=== PATIENT | male | born 1950 | race Two or more races ===

== ENCOUNTER 2021-09-16 15:14 | Emergency (ER) | payer OTHER ==
[~2021-09-16] VITALS: Ht 160 cm; Wt 83.9 kg
[2021-09-16] MEDS ORDERED: PANTOPRAZOLE 40 MG/10 ML VIAL INJ IV ONE (15:30)
[2021-09-16 16:52] LABS: Basophils # (auto) 0.1 10 ^3/uL (0-0.2); Basophils % (auto) 0.7 % (0.0-2.0); Eosinophils # (auto) 0 10 ^3/uL (0-0.8); Hematocrit 42.6 % (41.0-53.0); Lymphocytes # (auto) 0.2 10 ^3/uL (0.4-5.4); Lymphocytes % (auto) 1.1 % (10.0-50.0); Mean Corpuscular Hemoglobin 28.5 pg (28.0-32.0); Mean Corpuscular Hgb Conc. 35.1 g/dL (32.0-36.0); Mean Corpuscular Volume 81.3 fL (80.0-100.0); Monocytes # (auto) 0.9 10 ^3/uL (0-1.3); Monocytes % (auto) 4.2 % (0.0-12.0); Red Blood Cells 5.24 10^6/uL (4.5-5.90); Red Cell Distribution Width 13.1 % (11.8-14.3); White Blood Cell 21.3 10^3/uL (4.4-10.8)
[2021-09-16 17:03] LABS: Albumin 3.6 g/dL (3.4-5.0); BUN/Creatinine Ratio 17.3; Calcium 9.3 mg/dL (8.5-10.1)
[2021-09-16 17:05] LABS: Bilirubin, Total 1.4 mg/dL (0.2-1.0); Total Protein 7.8 g/dL (6.4-8.2)
[2021-09-16 17:08] LABS: Potassium 2.9 mmol/L (3.5-5.1)
[2021-09-16 17:11] LABS: INR 1.05 (0.9-1.15); Partial Thromboplastin Time 25.1 sec (23.6-33.0)
[2021-09-16] MEDS ORDERED: POTASSIUM CHL 20MEQ/100ML 100 ML IV ONE (17:45)
[2021-09-16] MEDS ORDERED: metroNIDAZOLE 500MG/100ML 100 ML IV ONE (17:45)
[2021-09-16] MEDS ORDERED: ONDANSETRON HCL 4 MG/2 ML VIAL IV ONE (17:45)
[2021-09-16] MEDS ORDERED: SODIUM CHLORIDE 0.9% 1,000 ML IV ONE ×2 (17:45→18:00)
[2021-09-16] MEDS ORDERED: levoFLOXacin 250 MG TAB PO ONE (17:45)
[2021-09-16 20:45] LABS: Lactic Acid w/Reflex 2.7 mmol/L (0.4-2.0)
[2021-09-16 20:50] LABS: Urine Bacteria NONE SEEN /hpf (None Seen); Urine Blood 2+ /uL (Negative); Urine Mucus FEW (None Seen); Urine Specific Gravity 1.027 (1.001-1.035); Urine WBC <1 /hpf (0 - 3)
[2021-09-16] MEDS ORDERED: ACETAMINOPHEN 325 MG TAB PO ONE (23:00)
[2021-09-16 23:41] VITALS: BP 138/83
== END 2021-09-17 00:23 | disposition short-term general hospital (02) ==
LOC: ER 15:14
DX: S09.8XXA Other specified injuries of head, initial encounter (principal); R55 Syncope and collapse; K92.2 Gastrointestinal hemorrhage, unspecified; I71.2 Thoracic aortic aneurysm, without rupture; D72.829 Elevated white blood cell count, unspecified; E87.6 Hypokalemia; Z20.822 Contact with and (suspected) exposure to COVID-19; X58.XXXA Exposure to other specified factors, initial encounter; Y93.89 Activity, other specified; Y92.89 Other specified places as the place of occurrence of the external cause; Y99.8 Other external cause status
CPT/HCPCS: 36415; 70450; 72125; 74176; 80053; 81001; 83605; 84484; 85025; 85610; 85730; 86850; 86900; 86901; 87426; 93005; 96361; 96365; 96366; 96368; 96375; 99285; C9113; J2405; J3480; J7030; J3490

== ENCOUNTER 2022-08-06 17:37 | Emergency (ER) | payer OTHER ==
[~2022-08-06] VITALS: Ht 177.8 cm; Wt 90.9 kg
[2022-08-06 18:30] LABS: Basophils # (auto) 0.1 10 ^3/uL (0-0.2); Basophils % (auto) 0.5 % (0.0-2.0); Eosinophils # (auto) 0 10 ^3/uL (0-0.8); Eosinophils % (auto) 0.5 % (0.0-7.0); Hematocrit 43.9 % (41.0-53.0); Hemoglobin 15.7 g/dL (13.5-17.5); Lymphocytes # (auto) 0.8 10 ^3/uL (0.4-5.4); Mean Corpuscular Hemoglobin 28.5 pg (28.0-32.0); Mean Corpuscular Hgb Conc. 35.8 g/dL (32.0-36.0); Mean Corpuscular Volume 79.7 fL (80.0-100.0); Monocytes # (auto) 0.4 10 ^3/uL (0-1.3); Monocytes % (auto) 4.1 % (0.0-12.0); Neutrophils # (auto) 9.5 10 ^3/uL (1.6-8.6); Neutrophils % (auto) 87.9 % (37.0-80.0); Nucleated Red Blood Cells % 1.2 %; Red Blood Cells 5.51 10^6/uL (4.5-5.90); Red Cell Distribution Width 13.1 % (11.8-14.3); White Blood Cell 10.9 10^3/uL (4.4-10.8)
[2022-08-06] MEDS ORDERED: SODIUM CHLORIDE 0.9% 1,000 ML IV ONE (18:30)
[2022-08-06 18:51] LABS: Albumin 3.8 g/dL (3.4-5.0); Magnesium 2.2 mg/dL (1.6-2.6); Potassium 3.6 mmol/L (3.5-5.1)
[2022-08-06 18:55] LABS: BUN/Creatinine Ratio 13.1 (10.0-20.0); Total Protein 7.6 g/dL (6.4-8.2)
[2022-08-06 19:30] VITALS: BP 139/78
[2022-08-06 19:34] LABS: Partial Thromboplastin Time 20.4 sec (24.6-33.4)
== END 2022-08-06 21:21 | disposition home or self-care (01) ==
LOC: ER 17:37
DX: R55 Syncope and collapse (principal)
CPT/HCPCS: 36415; 80053; 82962; 83735; 83880; 84484; 85025; 85610; 85730; 93005; 96360; 96361; 99284; J7030

== ENCOUNTER 2024-09-09 12:41 | Emergency (ER) | payer OTHER ==
[~2024-09-09] VITALS: Ht 177.8 cm; Wt 81.8 kg
--- NOTE | 2024-09-09 12:57 | ED.PDOC ---
History of Present Illness HPI Comments 74 year old male presents to the ED via EMS with a chief complaint of generalized weakness onset today (09/09/24). Patient was at [employer] store, walking to car when he began experiencing generalized weakness, dizziness, was cold, pale. Upon EMS arrival patient was hypotensive 79/45, BS 122. PMHx HTN, HLD. Denies chest pain, shortness of breath, vomiting, diarrhea, nausea. No other symptoms or modifying factors present at this time. Time Seen by MD: 12:48 Primary Care Provider: Aidan Reviewed Notes: Medications, Allergies Allergies: Coded Allergies: No Known Drug Allergy (Verified Allergy, Unknown, 09/16/21) Home Meds Active Scripts Meclizine HCl (Meclizine 25) 25 Mg Tab, 25 MG PO BS for 5 Days, #5 TAB Prov:AINSLEY BOURGEOIS MD 09/09/24 Information Source: Patient, Emergency Med Personnel Mode of Arrival: EMS Severity: Moderate Timing: Hours Duration: Since onset Prehospital treatment: None Past Medical History PAST MEDICAL HISTORY: High Lipids, HTN Surgical History: Denies all surgeries Family History Family History: Unknown Social History Smoker: Non-Smoker Alcohol: Denies ETOH Use Drugs: Denies Drug Use Lives In: Home Constitutional: reports: weakness; denies: chills, diaphoresis, fatigue, fever, malaise, sweats, others EENTM: denies: blurred vision, double vision, ear bleeding, ear discharge, ear drainage, ear pain, ear ringing, eye pain, eye redness, hearing loss, mouth pain, mouth swelling, nasal discharge, nose bleeding, nose congestion, nose pain, photophobia, tearing, throat pain, throat swelling, voice changes, others Respiratory: denies: cough, hemoptysis, orthopnea, SOB at rest, shortness of breath, SOB with excertion, stridor, wheezing, others Cardiovascular: denies: chest pain, dizzy spells, diaphoresis, Dyspnea on exertion, edema, irregular heart beat, left arm pain, lightheadedness, palpitations, PND, syncope, others Gastrointestinal: denies: abdomen distended, abdominal pain, blood streaked bowels, constipated, diarrhea, dysphagia, difficulty swallowing, hematemesis, melena, nausea, poor appetite, poor fluid intake, rectal bleeding, rectal pain, vomiting, others Genitourinary: denies: burning, dysuria, flank pain, frequency, hematuria, incontinence, penile discharge, penile sore, pain, testicle pain, testicle swelling, urgency, others Neurological: reports: dizziness, weakness; denies: fainting, headache, left sided numbness, left sided weakness, numbness, paresthesia, pre-existing deficit, right sided numbness, right sided weakness, seizure, speech problems, tingling, tremors, others Musculoskeletal: denies: back pain, gout, joint pain, joint swelling, muscle pain, muscle stiffness, neck pain, others Integumetry: denies: bruises, change in color, change in hair/nails, dryness, laceration, lesions, lumps, rash, wounds, others Allergic/Immunocompromised: denies: Difficulty Healing, Frequent Infections, Hives, Itching, others Hematologic/Lymphatic: denies: anemia, blood clots, easy bleeding, easy bruising, swollen glands, others Endocrine: denies: excessive hunger, excessive sweating, excessive thirst, excessive urination, flushing, intolerance to cold, intolerance to heat, unexplained weight gain, unexplained weight loss, others Psychiatric: denies: anxiety, bipolar disorder, depression, hopeless, panic disorder, schizophrenia, sleepless, suicidal, others All Other Systems: Reviewed and Negative Physical Exam General Appearance: Moderate Distress, Normal HEENT: Normal ENT Inspection, Pharynx Normal, TMs Normal Neck: Full Range of Motion, Non-Tender, Normal, Normal Inspection Respiratory: Chest Non-Tender, Lungs Clear, No Accessory Muscle Use, No Respiratory Distress, Normal Breath Sounds Cardiovascular: No Edema, No JVD, No Murmur, No Gallop, Normal Peripheral Pulses, Regular Rate/Rhythm Breast Exam: Deferred Gastrointestinal: No Organomegaly, Non Tender, No Pulsatile Mass, Normal Bowel Sounds, Soft Genitalia: Deferred Pelvic: Deferred Rectal: Deferred Extremities: No calf tenderness, Normal capillary refill, Normal inspection, Normal range of motion, Non-tender, No pedal edema Musculoskeletal : Apperance: Normal Neurologic: Alert, apparatus repair mechanic II-XII nml as Tested, No Motor Deficits, Normal Affect, Normal Mood, No Sensory Deficits Cerebellar Function: NOT DONE Reflexes: NOT DONE Skin: Dry, Normal Color, Warm Peripheral Pulses: 3+ Radial (R), 3+ Radial (L) Lymphatic: No Adenopathy Was a procedure done? Was a procedure done?: No EKG EKG : Pulse Rate (adult): 66 Cardiac Rhythm: NSR Differential Dx Considerations may include: Anemia Electrolyte imbalance X-Ray, Labs, Meds, VS Vital Signs Date Time Temp Pulse Resp B/P (MAP) Pulse Ox O2 Delivery O2 Flow Rate FiO2 09/09/24 13:03 66 09/09/24 13:00 98.0 66 18 121/71 (88) 98 98.0 09/09/24 12:53 66 Lab Test 09/09/24 14:58 09/09/24 13:50 Range/Units Troponin I High Sensitivity Pending < 3 L </=54 ng/L White Blood Count 10.8 4.4-10.8 10^3/uL Red Blood Count 5.23 4.5-5.90 10^6/uL Hemoglobin 15.2 13.5-17.5 g/dL Hematocrit 43.8 41.0-53.0 % Mean Corpuscular Volume 83.8 80.0-100.0 fL Mean Corpuscular Hemoglobin 29.0 28.0-32.0 pg Mean Corpuscular Hemoglobin Concent 34.6 32.0-36.0 g/dL Red Cell Distribution Width 13.9 11.8-14.3 % Platelet Count 234 140-450 10^3/uL Mean Platelet Volume 7.9 6.9-10.8 fL Neutrophils (%) (Auto) 87.8 H 37.0-80.0 % Lymphocytes (%) (Auto) 6.3 L 10.0-50.0 % Monocytes (%) (Auto) 4.7 0.0-12.0 % Eosinophils (%) (Auto) 0.5 0.0-7.0 % Basophils (%) (Auto) 0.7 0.0-2.0 % Neutrophils # (Auto) 9.5 H 1.6-8.6 10 ^3/uL Lymphocytes # (Auto) 0.7 0.4-5.4 10 ^3/uL Monocytes # (Auto) 0.5 0-1.3 10 ^3/uL Eosinophils # (Auto) 0.1 0-0.8 10 ^3/uL Basophils # (Auto) 0.1 0-0.2 10 ^3/uL Nucleated Red Blood Cells 0.2 % Sodium Level 137 136-145 mmol/L Potassium Level 3.8 3.5-5.1 mmol/L Chloride Level 104 98-107 mmol/L Carbon Dioxide Level 22 20-31 mmol/L Anion Gap 11 5-15 Blood Urea Nitrogen 16 9-23 mg/dL Creatinine 0.99 0.700-1.30 mg/dL Glomerular Filtration Rate Calc 81 >90 mL/min BUN/Creatinine Ratio 16.2 10.0-20.0 Serum Glucose 102 74-106 mg/dL Calcium Level 9.5 8.7-10.4 mg/dL Patient alert. Complaining of generalized weakness. Possible dizziness. Vitals stable. EKG reviewed does not show any acute changes. Establish intravenous access. Was given fluids. Patient did have near syncopal episode in the field. His blood pressure was in the 70s systolic. Fluid challenge did help his blood pressure prior to coming to the ER. Patient states that he is not feeling well. Continue monitoring. No sign of any TIA. No sign of any stroke. Moving all extremities. Good strength in all extremities. Abdomen is soft nontender. Patient ambulating. States that he is feeling much better. Cardiac marker within normal limits. WBC within normal limits. Hemoglobin within normal limits. Explained to the patient. Was told to follow up with his primary care physician. Was told to come back if there is any problem. Time of 1ST Reevaluation: 13:18 Reevaluation 1ST: Unchanged Patient Education/Counseling: Diagnosis, Treatment, Prognosis Family Education/Counseling: No Family Present Departure 1 Departure Time of Disposition: 13:06 Impression: Primary Impression: Autonomic disorder Disposition: 01 HOME / SELF CARE / HOMELESS Condition: Good e-Prescriptions Meclizine HCl (Meclizine 25) 25 Mg Tab 25 MG PO BS for 5 Days, #5 TAB Prov: AINSLEY BOURGEOIS MD 09/09/24 Discharged With: Self Critical Care Note Critical Care Time?: No Stability Stability form required: No Heart Score Heart Score: Heart Score Response (Comments) Value History Slightly Suspicious 0 EKG Normal 0 Age >65 2 Risk Factors >3 or Hx ASHD 2 Troponin Normal limit 0 Total 4 I personally scribed for AINSLEY BOURGEOIS MD ([email or web address]) on 09/09/24 at 12:57. Electronically submitted by Eliza Posey ([email or web address]). I personally scribed for AINSLEY BOURGEOIS MD ([email or web address]) on 09/09/24 at 13:03. Electronically submitted by Eliza Posey ([email or web address]). AINSLEY BOURGEOIS MD September 09, 2024 12:57
[2024-09-09] MEDS ORDERED: MECL1TAB42 PO (13:45)
[2024-09-09 14:27] LABS: Chloride 104 mmol/L (98-107); Potassium 3.8 mmol/L (3.5-5.1); Sodium 137 mmol/L (136-145)
[2024-09-09 14:28] LABS: Anion Gap 11 (5-15); Calcium 9.5 mg/dL (8.7-10.4); Carbon Dioxide 22 mmol/L (20-31)
[2024-09-09 14:33] LABS: BUN/Creatinine Ratio 16.2 (10.0-20.0); Blood Urea Nitrogen 16 mg/dL (9-23); Glucose 102 mg/dL (74-106)
[2024-09-09 14:37] LABS: Basophils # (auto) 0.1 10 ^3/uL (0-0.2); Basophils % (auto) 0.7 % (0.0-2.0); Eosinophils # (auto) 0.1 10 ^3/uL (0-0.8); Eosinophils % (auto) 0.5 % (0.0-7.0); Hematocrit 43.8 % (41.0-53.0); Hemoglobin 15.2 g/dL (13.5-17.5); Lymphocytes # (auto) 0.7 10 ^3/uL (0.4-5.4); Lymphocytes % (auto) 6.3 % (10.0-50.0); Mean Corpuscular Hgb Conc. 34.6 g/dL (32.0-36.0); Mean Corpuscular Volume 83.8 fL (80.0-100.0); Monocytes # (auto) 0.5 10 ^3/uL (0-1.3); Monocytes % (auto) 4.7 % (0.0-12.0); Neutrophils # (auto) 9.5 10 ^3/uL (1.6-8.6); Neutrophils % (auto) 87.8 % (37.0-80.0); Nucleated Red Blood Cells % 0.2 %; Platelet Count (auto) 234 10^3/uL (140-450); Red Blood Cells 5.23 10^6/uL (4.5-5.90); Red Cell Distribution Width 13.9 % (11.8-14.3); White Blood Cell 10.8 10^3/uL (4.4-10.8)
--- NOTE | 2024-09-09 14:45 | ECG ---
[facility] Test Date: 2024-09-09 Test Time: 12:53:48 Pat Name: KYLIE FARMER Department: ED Room: Gender: M Emergency Physician: ALVAREZ : 1950 Requested By: AINSLEY BOURGEOIS Order Number: [id number] Reading MD: Dionte Bundy Measurements Intervals [place] Rate: 66 P: 66 HI: 210 QRS: 60 QRSD: 112 T: 63 QT: 438 QTc: 459 Interpretive Statements Sinus rhythm Borderline intraventricular conduction delay Electronically Signed On 09-11-2024 12:46:02 PDT by Dionte Bundy Please click the below link to view image of tracing.
[2024-09-09] MEDS: MECLIZINE HCL 25 MG TAB PO ONE (15:15)
[2024-09-09] MEDS: SODIUM CHLORIDE 0.9% 1,000 ML IV ONE (15:18)
[2024-09-09 16:15] VITALS: BP 143/73; PULSE 97; RESP 16; TEMP 98.2; O2SAT 97
[2024-09-09 17:05] LABS: Urine Bacteria None Seen /hpf (None Seen)
[2024-09-09 17:26] LABS: Urine Blood Negative /uL (Negative); Urine Clarity Turbid (Clear); Urine Color Yellow (Yellow); Urine Mucus FEW (None Seen); Urine Protein, UAD TRACE (Negative); Urine Specific Gravity 1.015 (1.001-1.035); Urine Squamous Epithelial Cell FEW /hpf (<5); Urine Urobilinogen Normal (Negative); Urine WBC 2 /HPF (0-3)
== END 2024-09-09 16:21 | disposition home or self-care (01) ==
LOC: EDSEX 12:41 → EDBD 12:41 → ER 12:43
DX: G90.9 Disorder of the autonomic nervous system, unspecified (principal); I10 Essential (primary) hypertension; E78.5 Hyperlipidemia, unspecified
CPT/HCPCS: 36415; 80048; 81001; 84484; 85025; 93005; 96360; 99284; J7030

== ENCOUNTER 2025-01-15 21:16 | Emergency (ER) | payer OTHER ==
[~2025-01-15] VITALS: Ht 177.8 cm; Wt 94.8 kg
[~2025-01-15 21:16] MED LIST: MECL1TAB42 PO
[2025-01-15 22:25] LABS: Hematocrit 44.6 % (41.0-53.0); Hemoglobin 16.2 g/dL (13.5-17.5); Mean Corpuscular Hemoglobin 29.7 pg (28.0-32.0); Mean Corpuscular Volume 81.6 fL (80.0-100.0); Nucleated Red Blood Cells % 0.3 %
[2025-01-15 22:31] LABS: Chloride 99 mmol/L (98-107); Potassium 3.8 mmol/L (3.5-5.1); Sodium 138 mmol/L (136-145)
[2025-01-15 22:32] LABS: Anion Gap 11 (5-15); Calcium 9.5 mg/dL (8.7-10.4); Carbon Dioxide 28 mmol/L (20-31)
[2025-01-15 22:37] LABS: BUN/Creatinine Ratio 14.3 (10.0-20.0); Blood Urea Nitrogen 14 mg/dL (9-23); Glucose 91 mg/dL (74-106)
--- NOTE | 2025-01-15 22:40 | ED.PDOC ---
HPI Comments This is a 74 year-old male with a Hx of HTN, who presents to the ED with a chief complaint of High Blood Pressure as of today. Patient states he was seen at [facility] yesterday for a flu shot, when he was told by the nurse his blood pressure was high. Patient was recommended to see a PA on staff at the time, but refused. Patient reports monitoring his blood pressure throughout the day today when he noticed it reached "180 over something". Patient became alarmed and came to the ED for further evaluation. Upon arrival to the ED, patients blood pressure is 179/111. Patient reports additional symptoms of "heavy" like feeling to the head. Patient takes Atorvastatin 20mg twice daily, as prescribed. Patient additionally notes he has an appt with [facility] next week on Monday. Patient has no further complaints at this time and otherwise denies chest pain, headache, dizziness, N/V/D, palpitations, or weakness. REVIEW OF SYSTEMS: General: Positive HTN. No fever, no chills, or fatigue HEENT: No sore throat, no earache, no congestion, no neck pain. Cardiac: No chest pain. No palpitations. Lungs: No shortness of breath, no cough. GI: No nausea, no vomiting, no diarrhea, no constipation, no abdominal pain : No dysuria, frequency, or urgency. No hematuria. Musculoskeletal: No joint pain , no joint swelling, no extremity edema. Skin: No rash, no itching. Neuro: No headache, no dizziness, no weakness PHYSICAL EXAM: General: Awake, alert and oriented. No acute distress. Skin: Skin in warm, dry and intact. Appropriate color for ethnicity. HEENT: The head is normocephalic and atraumatic. Conjunctivae are clear without exudates or hemorrhage. Sclera is non-icteric. EOM are intact. No signs of nystagmus. Eyelids are normal in appearance without swelling or lesions. Oral mucosa is pink and moist Neck: The neck is supple with normal range of motion. No JVD. Cardiac: Heart rate and rhythm are normal. No murmurs, gallops, or rubs are auscultated. Respiratory: No signs of respiratory distress. Lung sounds are clear in all lobes bilaterally without rales, rhonchi, or wheezes. Abdominal: Abdomen is soft, non-tender without distention. Bowel sounds are present and normoactive in all four quadrants. Extremities: Upper and lower extremities are atraumatic in appearance without deformity or edema. Neurological: The patient is awake, alert and oriented to person, place, and time with normal speech. Speech is clear. There is no facial asymmetry. Psychiatric: Appropriate mood and affect. Good judgement and insight Chief Complaint: High Blood Pressure Time Seen by MD: 21:00 Primary Care Provider: Aidan De Jesus Notes: Medications, Allergies Allergies: Coded Allergies: No Known Drug Allergy (Verified Allergy, Unknown, 09/16/21) Home Meds Active Scripts Meclizine HCl (Meclizine 25) 25 Mg Tab, 25 MG PO BS for 5 Days, #5 TAB Prov:AINSELY BOURGEOIS MD 09/09/24 Information Source: Patient Mode of Arrival: Ambulatory Severity: Moderate Timing: Hours Duration: Since onset Past Medical History PAST MEDICAL HISTORY: High Lipids, HTN Surgical History: Denies all surgeries Family History Family History: Unknown Social History Smoker: Non-Smoker Alcohol: Denies ETOH Use Drugs: Denies Drug Use Lives In: Home Was a procedure done? Was a procedure done?: No CP Differential Dx Differential Diagnosis: Angina, Anxiety / Panic Attack, Other Differential Diagnosis: HTN Essential, HTN Accelerated, HTN Encephalopathy, Medical NonCompliance X-Ray, Labs, Meds, VS Vital Signs Date Time Temp Pulse Resp B/P (MAP) Pulse Ox O2 Delivery O2 Flow Rate FiO2 01/15/25 23:55 97.1 76 16 150/91 (110) 97 97.1 01/15/25 21:16 98.1 77 16 179/111 96 98.1 Lab Test 01/15/25 22:05 Range/Units White Blood Count 9.1 4.4-10.8 10^3/uL Red Blood Count 5.46 4.5-5.90 10^6/uL Hemoglobin 16.2 13.5-17.5 g/dL Hematocrit 44.6 41.0-53.0 % Mean Corpuscular Volume 81.6 80.0-100.0 fL Mean Corpuscular Hemoglobin 29.7 28.0-32.0 pg Mean Corpuscular Hemoglobin Concent 36.3 H 32.0-36.0 g/dL Red Cell Distribution Width 13.1 11.8-14.3 % Platelet Count 268 140-450 10^3/uL Mean Platelet Volume 8.2 6.9-10.8 fL Neutrophils (%) (Auto) 69.8 37.0-80.0 % Lymphocytes (%) (Auto) 19.2 10.0-50.0 % Monocytes (%) (Auto) 7.2 0.0-12.0 % Eosinophils (%) (Auto) 2.8 0.0-7.0 % Basophils (%) (Auto) 1.0 0.0-2.0 % Neutrophils # (Auto) 6.4 1.6-8.6 10 ^3/uL Lymphocytes # (Auto) 1.7 0.4-5.4 10 ^3/uL Monocytes # (Auto) 0.7 0-1.3 10 ^3/uL Eosinophils # (Auto) 0.3 0-0.8 10 ^3/uL Basophils # (Auto) 0.1 0-0.2 10 ^3/uL Nucleated Red Blood Cells 0.3 % Sodium Level 138 136-145 mmol/L Potassium Level 3.8 3.5-5.1 mmol/L Chloride Level 99 98-107 mmol/L Carbon Dioxide Level 28 20-31 mmol/L Anion Gap 11 5-15 Blood Urea Nitrogen 14 9-23 mg/dL Creatinine 0.98 0.700-1.30 mg/dL Glomerular Filtration Rate Calc 82 >90 mL/min BUN/Creatinine Ratio 14.3 10.0-20.0 Serum Glucose 91 74-106 mg/dL Calcium Level 9.5 8.7-10.4 mg/dL Troponin I High Sensitivity 5 </=54 ng/L Images Reviewed?: Images reviewed and evaluated by me Time of 1ST Reevaluation: 22:40 Reevaluation 1ST: Unchanged Patient Education/Counseling: Need For Follow Up Family Education/Counseling: No Family Present Medical Screening: No EMC Exist At This Time SEPSIS Sepsis Screen Date sepsis recognized/suspect: Jan 15, 2025 Time Sepsis recognized/suspect: 2115 Recent Procedure: No On Antibiotic Therapy: No Respiratory Rate >20: No Heart Rate >90: No Temp<36 C (96.8 F) or >38.3 C: No SBP <90 or MAP <65 mmHG: No New Acute Mental Status Change: No Is the patient on CPAP, BIPAP,: No Physician Orders Electrocardigram (01/15/25 21:42) Blood Pressure (01/15/25 ) Vital Signs Date Time Temp Pulse Resp B/P (MAP) Pulse Ox O2 Delivery O2 Flow Rate FiO2 01/15/25 23:55 97.1 76 16 150/91 (110) 97 97.1 01/15/25 21:16 98.1 77 16 179/111 96 98.1 Laboratory Tests Test 01/15/25 22:05 White Blood Count 9.1 10^3/uL (4.4-10.8) Departure 1 Departure Time of Disposition: 00:29 Impression: Primary Impression: Elevated blood pressure reading Disposition: 01 HOME / SELF CARE / HOMELESS Condition: Stable Additional Instructions: ED DISCHARGE INSTRUCTIONS Instructions: Please read all instructions provided in this packet carefully. Although you have been discharged from the Emergency Department, this does not mean that you have a "clean bill of health". No definitive diagnosis for your symptoms has been made today. It is possible that you are in the process of developing a serious illness. This is why you must return to the ED without fail if any new or worsening symptoms (especially if your symptoms include chest pain, trouble breathing, abdominal pain, fever, headache, confusion, trouble seeing, or trouble walking) It is also very important that you see a primary care provider (PCP) within the next 3-5 days to follow up. If you are unable to get an appointment, return to the ED for re-evaluation. You had elevated blood pressure reading today. Untreated high blood pressure can have serious consequences. However, you need a follow-up appointment to recheck your blood pressure to determine whether or not you need treatment. Make an appointment with your primary care provider for this within the next week. What is high blood pressure? Blood pressure is a measure of how hard the blood pushes against the ojeda of your arteries. It's normal for blood pressure to go up and down throughout the day. But if it stays up, you have high blood pressure (hypertension). Two numbers tell you your blood pressure. The first (top) number is the systolic pressure. It shows how hard the blood pushes when your heart is pumping. The second (bottom) number is the diastolic pressure. It shows how hard the blood pushes between heartbeats, when your heart is relaxed and filling with blood. High blood pressure means that the top number stays high, or the bottom number stays high, or both. For diagnosis, the top number may be 130 to 140 or higher. The bottom number may be 80 to 90 or higher High blood pressure increases the risk of stroke, heart attack, and other problems. High Blood Pressure Skip Navigation When to Call a Doctor Call 911 anytime you think you may need emergency care. This may mean having symptoms that suggest that your blood pressure is causing a serious heart or blood vessel problem. Your blood pressure may be over 180/120. For example, call 911 if: You have symptoms of a heart attack. These may include: Chest pain or pressure, or a strange feeling in the chest. Sweating. Shortness of breath. Nausea or vomiting. Pain, pressure, or a strange feeling in the back, neck, jaw, or upper belly or in one or both shoulders or arms. Lightheadedness or sudden weakness. A fast or irregular heartbeat. You have symptoms of a stroke. These may include: Sudden numbness, tingling, weakness, or loss of movement in your face, arm, or leg, especially on only one side of your body. Sudden vision changes. Sudden trouble speaking. Sudden confusion or trouble understanding simple statements. Sudden problems with walking or balance. A sudden, severe headache that is different from past headaches. You have severe back or belly pain. Do not wait until your blood pressure comes down on its own. Get help right away. Call your doctor now or seek immediate care if: Your blood pressure is much higher than normal (such as 180/120 or higher), but you don't have symptoms. You think high blood pressure is causing symptoms, such as: Severe headache. Blurry vision. Watch closely for changes in your health, and be sure to contact your doctor if: Your blood pressure measures higher than your doctor recommends at least 2 times. That means the top number is higher or the bottom number is higher, or both. You think you may be having side effects from your blood pressure medicine. Your blood pressure can be checked: At a clinic where you work or go to school. At drugstores, health fairs, fitness centers, community centers, fire stations, and ambulance stations. What causes it? Experts don't fully understand the exact cause of high blood pressure. But they know that some things are linked to it. These include aging, drinking too much alcohol, eating a lot of sodium (salt), being overweight, and not exercising. What are the symptoms? High blood pressure doesn't usually cause symptoms. Most people don't know they have it until they go to the doctor for some other reason. Very high blood pressure (such as 180/120 or higher) can cause severe headaches and vision problems. How is it diagnosed? During a routine visit, your doctor will measure your blood pressure. Your doctor may ask you to test it again when you are home.[id number], footnote4 This is because your blood pressure can change throughout the day. To diagnose high blood pressure, your doctor needs to know if your blood pressure is high throughout the day. How is high blood pressure treated? The two types of treatment for high blood pressure are lifestyle changes and medicines. Your doctor may ask you to lose extra weight, eat less sodium, and be more active. If these lifestyle changes don't help enough, you may also need to take daily medicines. What can you do to prevent it? A heart-healthy lifestyle can help you prevent high blood pressure. These changes are even more important if you have risk factors for high blood pressure that you can't change. These risk factors include race, age, and having others in your family who have high blood pressure. Here are some things you can do. Stay at a healthy weight. Eat heart-healthy foods, and limit sodium. Get regular exercise. Limit alcohol to 2 drinks a day for men and 1 drink a day for women. What Happens When blood pressure is high, it starts to damage blood vessels, called arteries, and your heart. Damaged arteries can lead to problems throughout your body. The higher your blood pressure, the greater your risk. This damage doesn't happen all at once. It happens slowly over time. But you can't tell that it's happening, because you don't feel anything. High blood pressure can lead to: Heart failure. High blood pressure makes your heart work harder. And that can lead to heart failure, which means your heart doesn't pump as much blood as your body needs. Heart attack and stroke. High blood pressure can cause atherosclerosis or "hardening of the arteries." This problem happens when the inner lining of an artery is damaged. Fat and calcium can build up in the artery wall. This buildup is called plaque. Over time, plaque can cause problems throughout the body. These problems include coronary artery disease, peripheral artery disease, heart attack, and stroke. Vision loss and kidney disease. Arteries also carry blood and oxygen to organs like your eyes and kidneys. If high blood pressure damages those arteries, it can lead to vision loss and kidney disease. Problems in your brain. High blood pressure can also affect the arteries in your brain, raising the risk of dementia and a stroke caused by bleeding in the brain. High blood pressure usually can't be cured. But it can be controlled. Lowering blood pressure lowers the risk of damaging blood vessels. To lower it, you may make lifestyle changes, take medicines each day, or both. Comments 74-year-old male with elevated blood pressure reading. Asymptomatic. Blood pressure improved during the ED observation. He is advised to follow up with the primary care provider for re-evaluation promptly. Advised to return to the emergency department with any new worsening or concerning symptoms. Critical Care Note Critical Care Time?: No Stability Stability form required: No Heart Score Heart Score: Heart Score Response (Comments) Value History N/A 0 EKG N/A 0 Age N/A 0 Risk Factors N/A 0 Troponin N/A 0 Total 0 I personally scribed for KATIE MARCUM MD ([email or web address]) on 01/15/25 at 22:40. Electronically submitted by Fay Light ([email or web address]). I personally scribed for KATIE MARCUM MD ([email or web address]) on 01/15/25 at 22:42. Electronically submitted by Fay Light ([email or web address]). KATIE MARCUM MD Jan 15, 2025 22:40
[2025-01-15 23:55] VITALS: TEMP 97.1
--- NOTE | 2025-01-16 00:52 | ED.PDOC ---
EKG EKG : Pulse Rate (adult): 67 [place]: Normal Cardiac Rhythm: NSR Block: None Hypertrophy: None ST: Normal ADDENDUM ADDENDUM 005: Patient was reassessed at this time. EKG reads 67 NSR. No STEMI. Vitals are stable. I personally scribed for KATIE MARCUM MD ([email or web address]) on 01/16/25 at 00:52. Electronically submitted by Fay Light ([facility]). KTAIE MARCUM MD Jan 16, 2025 00:52
[2025-01-16 00:57] VITALS: BP 156/85; PULSE 70; RESP 16; O2SAT 96
--- NOTE | 2025-01-16 06:15 | ECG ---
[facility] Test Date: 2025-01-16 Test Time: 00:43:52 Pat Name: KYLIE FARMER Department: ED Room: Gender: M Guest Services: KAYCE : 1950 Requested By: KATIE MARCUM Order Number: [id number] Reading MD: Dionte Bundy Measurements Intervals [place] Rate: 67 P: 71 NV: 218 QRS: 46 QRSD: 98 T: 39 QT: 409 QTc: 432 Interpretive Statements Sinus rhythm Borderline prolonged NV interval Electronically Signed On 01-16-2025 16:41:41 PDT by Dionte Bundy Please click the below link to view image of tracing.
== END 2025-01-16 01:26 | disposition home or self-care (01) ==
LOC: ER 21:16
DX: I10 Essential (primary) hypertension (principal); E78.5 Hyperlipidemia, unspecified; Z79.899 Other long term (current) drug therapy
CPT/HCPCS: 36415; 80048; 84484; 85025; 93005